=== PATIENT | male | born 1995 | race Hispanic/Latino ===

== ENCOUNTER 2025-08-26 20:19 | Emergency (ER) | payer BC ==
[2025-08-26] MEDS ORDERED: Acetaminophen 500 MG TAB ONE (20:47)
== END 2025-08-26 23:03 | disposition home or self-care (01) ==
LOC: CSHERS 20:19
DX: G44.009 Cluster headache syndrome, unspecified, not intractable (principal); R42 Dizziness and giddiness
CPT/HCPCS: 36416; 70450; Q0162